=== PATIENT | female | born 1960 ===

== ENCOUNTER 2020-06-02 16:29 | Emergency (ER) | payer OTHER ==
[~2020-06-02] VITALS: Ht 152.4 cm; Wt 71.2 kg
[2020-06-02] MEDS ORDERED: KETO10TA2 PO (18:47)
== END 2020-06-02 19:05 | disposition home or self-care (01) ==
LOC: ER 16:29
DX: S42.021A Displaced fracture of shaft of right clavicle, initial encounter for closed fracture (principal); S62.623A Displaced fracture of middle phalanx of left middle finger, initial encounter for closed fracture; S40.011A Contusion of right shoulder, initial encounter; S60.221A Contusion of right hand, initial encounter; S30.0XXA Contusion of lower back and pelvis, initial encounter; W18.39XA Other fall on same level, initial encounter; Y93.89 Activity, other specified; Y92.89 Other specified places as the place of occurrence of the external cause; Y99.8 Other external cause status